=== PATIENT | male | born 1970 | race Caucasian/White ===

== ENCOUNTER 2023-12-22 06:29 | Observation (INO) ==
[~2023-12-22 06:29] MED LIST: Metoclopramide 5 MG/ML VIAL (10 mg) IV PRN; NS 0.45% 1000 ml BAG 1,000 ML IV SCH; Naloxone 0.4 mg VIAL 0.4 mg/ml 1 ml VIAL IV PRN; Ondansetron 4 mg VIAL 2 MG/ML 2 ml VIAL IV PRN
[2023-12-22] MEDS ORDERED: Tranexamic Acid 1 GM/100ML BAG 2,000 MG/200 ML BAG IV ONE (07:03)
[2023-12-22 07:23] LABS: Rapid COVID-19 Molecular Undetected (Undetected)
[2023-12-22] MEDS ORDERED: Scopolamine 1 mg/72hr PATCH ONE (07:29)
[2023-12-22] MEDS: Scopolamine 1 mg/72hr PATCH TRANSDERM ONE (07:33)
[2023-12-22] MEDS: Lactated Ringers 1000 ml BAG 1,000 ML IV SCH ×2 (07:33→15:04)
[2023-12-22] MEDS: Buffered Lidocaine 1% SYRIN 1 ml INTRADERM ONE (07:34)
[2023-12-22] MEDS ORDERED: ceFAZolin 2 GM PREMIX 2 GM/50 ML BAG ONE (07:47)
[2023-12-22] MEDS ORDERED: Lidocaine 2% PF 5 ML VIAL ONE (07:54)
[2023-12-22] MEDS ORDERED: Ondansetron 4 mg VIAL 2 MG/ML 2 ml VIAL ONE (07:54)
[2023-12-22] MEDS ORDERED: Propofol 10 MG/ML 20 ML BTL ONE (07:54)
[2023-12-22] MEDS ORDERED: Dexamethasone IV 4 MG/ML VIAL 1 ml VIAL ONE (07:54)
[2023-12-22] MEDS ORDERED: Rocuronium 50 mg VIAL 10 mg/ml 5 ml VIAL (50 mg) ONE ×2 (07:54→10:11)
[2023-12-22] MEDS ORDERED: fentaNYL 250 mcg/5 ml 50 MCG/ML 5 ml VIAL (250 MCG) ONE ×2 (07:55→09:59)
[2023-12-22] MEDS ORDERED: Midazolam 2 mg/2 ml VIAL 1 mg/ml 2 ml VIAL (2 mg) ONE (07:55)
[2023-12-22] MEDS ORDERED: ROPIVACAINE 5 MG/ML 30 ML BTL (0.5%) ONE (09:20)
[2023-12-22] MEDS ORDERED: HYDROmorphone 0.5 MG/0.5 ML SYRINGE ONE (09:59)
[2023-12-22] MEDS ORDERED: Ondansetron ODT 4 mg TAB 4 MG TAB PO PRN (10:15)
[2023-12-22] MEDS ORDERED: Lactulose 30 ml UDC PO PRN (10:15)
[2023-12-22] MEDS ORDERED: Calcium Carb (TUMS) 500 mg CHEW TAB PO PRN (10:15)
[2023-12-22] MEDS ORDERED: Magnesium Hydroxide LIQ 30 ML UDC PO PRN (10:15)
[2023-12-22] MEDS ORDERED: Morphine 2 MG/ML SYRINGE IV PRN (10:15)
[2023-12-22] MEDS ORDERED: Ondansetron 4 mg VIAL 2 MG/ML 2 ml VIAL IV PRN (10:15)
[2023-12-22] MEDS ORDERED: fentaNYL 100 mcg/2 ml 50 MCG/ML VIAL ONE (12:45)
[2023-12-22] MEDS: fentaNYL 100 mcg/2 ml 50 MCG/ML VIAL IV PRN (12:47)
[2023-12-22] MEDS: Acetaminophen IV 1 GM/100ML 1,000 MG/100 ML BAG IV ONE (15:04)
[2023-12-22] MEDS: ceFAZolin 2 GM PREMIX 2 GM/50 ML BAG IV SCH (17:43)
[2023-12-23] MEDS: Magnesium Hydroxide LIQ 30 ML UDC PO SCH (00:15)
[2023-12-23 06:21] LABS: Hematocrit 38.1 % (38-53); Hemoglobin 12.8 g/dL (13.2-16.3); Mean Platelet Volume 7.5 fL (7.5-11.2); Platelet Count 231 10^3/uL (150-450)
[2023-12-23 07:07] LABS: Calcium 8.7 mg/dL (8.6-10.3); Creatinine, Serum 1.07 mg/dL (0.67-1.17); Potassium 4.1 mmol/L (3.5-5.0); eGFR CKD-EPI 83.5 (>60)
[2023-12-23] MEDS: Vitamin THERAPEUTIC TAB PO SCH (08:32)
== END 2023-12-23 13:55 | disposition home or self-care (01) ==
LOC: OR 06:29 → SSU 06:29
PROVIDERS: ADMIT Orthopaedic Surgery Adult Reconstructive Orthopaedic Surgery; ATTEND Orthopaedic Surgery Adult Reconstructive Orthopaedic Surgery